=== PATIENT | female | born 1960 | race Caucasian/White ===

== ENCOUNTER → 2023-10-03 06:27 | Day surgery (SDC) | payer OTHER, SELFPAY | LOC: GI 06:27 | PROVIDERS: ATTENDING PHYSICIAN Internal Medicine Gastroenterology | DX: Z12.11 Encounter for screening for malignant neoplasm of colon (principal); K64.8 Other hemorrhoids; K57.30 Diverticulosis of large intestine without perforation or abscess without bleeding; K63.5 Polyp of colon; Z86.010 Personal history of colon polyps | CPT/HCPCS: 45380; 88305 ==

== ENCOUNTER 2023-11-04 07:27 | Emergency (ER) | payer OTHER, SELFPAY ==
[2023-11-04] VITALS (7 sets, daily range): BP systolic 148–187; BP diastolic 76–104; BMI 23.9
--- NOTE | 2023-11-04 07:58 | ED.GENMED ---
History of Present Illness
<Blanca Interiano DO, Resident - Last Filed: 11/04/23 08:20>
General
Chief Complaint: Heart Rate Problem
Source: patient
Exam Limitations: none
Time Seen by Provider: 11/04/23 07:35
Nursing documentation reviewed up to this point in time: agreed with
History of Present Illness
History of Present Illness:
Ms. Idania Arriola is a 63 yo F pmh HTN, HLD, migraines presenting with 'skipped beats.' Yesterday, pt noticed her heart skipping beats while taking her pulse. She felt overall fine yesterday and was going to see PCP this am. However, her BP was
elevated at home 162/80s, which prompted her to go to the ED. Denies DOMÍNGUEZ, lightheadedness, SOB, wheezing, CP, palpitations, lower extremity edema, n/v/d. Reports feeling dehydrated. She has felt palpitations in the past, but none today.
Hx heart murmur during . No hx arrhythmias.
Family hx aortic dissection in father.
Reports L leg tingling for the past couple days. Present off and on for 30 years. Aggravated by stress. Has had extensive testing for this, but no dx.
Past History
<Blanca Interiano DO, Resident - Last Filed: 11/04/23 08:20>
Past History
ED Past Medical History: HTN and Hypercholesterolemia
ED Past Surgical History: and Gynecological (Hysterectomy)
Patient has exhibited threatening behavior?: No
Social History
Tobacco: Non-smoker
Alcohol: Occasional
Personal:
Living: with family
Family History
Family History: Other (Her father had an abdominal aortic aneurysm)
Review of Systems
<Blanca Interiano DO, Resident - Last Filed: 11/04/23 08:20>
Review of Systems
All Other Systems: ROS reviewed and negative except as documented in HPI and ROS
Phy Exam
<Blanca Interiano DO, Resident - Last Filed: 11/04/23 08:20>
Physical Exam
Physical Exam:
.
General Physical Exam
General Presentation: well appearing
General age: appears stated age
General Skin: warm
General Habitus: normal
General Mental: alert
General Hydration: dry mucous membranes
Cardiovascular Exam
Cardiovascular Exam: no edema, no gallop, no JVD, no murmur, normal peripheral pulses, no carotid bruit and occasionally irregular
Heart Sounds: normal
Pulmonary Exam
Pulmonary Exam: lungs clear, no respiratory distress, no rales, no rhonchi, no wheezing and no cough
Gastrointestinal Exam
Gastrointestinal Exam: normal bowel sounds, non tender, soft and non distended
Course
<Blanca Interiano DO, Resident - Last Filed: 11/04/23 08:20>
Orders/Labs/Results
Orders:
Orders
11/04/23 07:56
Complete Blood Count/No Diff Urgent
Metoprolol [Lopressor] 25 mg PO NOW STA
11/04/23 07:57
Electrocardiogram (*1) Urgent
Reason for Study: Abnormal EKG
EKG- Treatment ONCE
Comprehensive Metabolic Panel Urgent
TSH Urgent
Vital Signs
Initial and Last Documented VS:
Initial Vital Signs
Temp Pulse Resp BP Pulse Ox
98.2 F 85 18 182/104 99
11/04/23 07:28 11/04/23 07:28 11/04/23 07:28 11/04/23 07:28 11/04/23 07:28
Last Documented Vital Signs
Temp Pulse Resp BP Pulse Ox
98.2 F 85 18 182/104 99
11/04/23 07:28 11/04/23 07:28 11/04/23 07:28 11/04/23 07:28 11/04/23 07:28
<Jose L Rashid DO - Last Filed: 11/04/23 08:19>
Orders/Labs/Results
Orders:
Orders
11/04/23 07:56
Complete Blood Count/No Diff Urgent
Metoprolol [Lopressor] 25 mg PO NOW STA
11/04/23 07:57
Electrocardiogram (*1) Urgent
Reason for Study: Abnormal EKG
EKG- Treatment ONCE
Comprehensive Metabolic Panel Urgent
TSH Urgent
Vital Signs
Initial and Last Documented VS:
Initial Vital Signs
Temp Pulse Resp BP Pulse Ox
98.2 F 85 18 182/104 99
11/04/23 07:28 11/04/23 07:28 11/04/23 07:28 11/04/23 07:28 11/04/23 07:28
Last Documented Vital Signs
Temp Pulse Resp BP Pulse Ox
98.2 F 85 18 182/104 99
11/04/23 07:28 11/04/23 07:28 11/04/23 07:28 11/04/23 07:28 11/04/23 07:28
<Blanca Interiano DO, Resident - Last Filed: 11/04/23 08:20>
MDM/Problems Addressed
Differential Diagnosis Includes:
cardiac arrhythmia, electrolyte imbalance, hyperthydroidism
Chronic conditions affecting care: HTN and Previous abdomnial surgery (, partial hysterectomy, cholecystectomy)
Acute Exacerbation and/or Progression of Chronic Illness: HTN
<Blanca Interiano DO, Resident - Last Filed: 11/04/23 08:20>
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
Rate: normal
Interpretation: abnormal
Heart Rate: 85
Rhythm: PVC's (possible runs of 1-2 ) and other (possible 1-2 seconds of vtach. Difficult to discern if artifact. ECG ordered to better differentiate)
*Critical Care Note
Total Time (30-74mins, 75-104mins- exclusive of procedures): Not Applicable
ED Attending Note
<Blanca Interiano DO, Resident - Last Filed: 11/04/23 08:20>
-
Portions of this chart may have been created with voice recognition software.� Occasional wrong word or��sound alike� substitutions may have occurred due to the inherent limitations of voice recognition software.
<Jose L Rashid DO - Last Filed: 11/04/23 08:19>
ED Attending Note
Patient seen and examined by attending physician: Yes
I performed a history and physical exam of patient and discussed management with resident, I reviewed resident's note and agree with documented findings and plan of care.: Yes
ED Attending Note:
Seen with resident examined independently 63-year-old female hypertension on lisinopril chronic left-sided numbness due to anxiety presents with palpitations she drinks a martini a day, no nausea vomiting no chest pain, no syncope, EKG and cardiac
monitor looking normal sinus rhythm with frequent PVCs, plan will be electrolytes, cardiac monitoring, blood pressure is up we will give her some beta-stephenie,
Discharge Plan
Departure
Prescriptions:
No Action
omeprazole 20 MG capsule,delayed release(DR/EC)
40 mg PO DAILY
lisinopril 10 MG tablet
10 mg PO DAILY
multivitamin 1 EACH tablet
1 ea PO DAILY
vitamin B complex 1 TAB tablet
1 tab PO DAILY
polyethylene glycol 3350 17 GRAMS powder in packet
17 grams PO DAILYPRN PRN (Reason: constipation) Qty: 1 0RF
acetaminophen [Tylenol Extra Strength] 500 MG tablet
1,000 mg PO Q6HPRN PRN (Reason: mild pain) Qty: 1 0RF
ibuprofen 200 MG tablet
400 - 600 mg PO Q6HPRN PRN (Reason: moderate pain) Qty: 1 0RF
oxycodone 5 MG tablet
5 mg PO Q4HPRN PRN (Reason: breakthrough/severe pain) Qty: 7 0RF
Referrals:
Idania Stratton MD [Family Provider] -
Discharge Date and Time
Print Language: KAZAKH
[2023-11-04] MEDS: LOPRESSOR 25 MG PO (08:22)
[2023-11-04 09:03] LABS: Hematocrit 39.1 % (37.0-47.0); Hemoglobin 12.8 g/dL (12.0-16.0); Mean Corp Hgb Conc. 32.7 g/dL (33.0-37.0); Mean Corpuscular Hgb 28.1 pg (27.0-31.0); Mean Corpuscular Volume 85.7 fL (81.0-99.0); Mean Platelet Volume 9.6 fL (7.4-10.4); Platelet Count 258 10^3/uL (130-400); Red Blood Cell Count 4.56 10^6/uL (4.20-5.40); Red Cell Dist. Width 13.4 % (11.5-14.5); White Blood Cell Count 5.5 10^3/uL (4.8-10.8)
[2023-11-04 09:05] LABS: ALT (SGPT) 17 U/L (0-35); AST (SGOT) 26 U/L (14-36); Albumin 4.3 g/dl (3.5-5.0); Alkaline Phosphatase 84 U/L (38-126); Blood Urea Nitrogen 13 mg/dl (7-17); Calcium 9.9 mg/dl (8.4-10.2); Carbon Dioxide 29 mmol/L (22-30); Chloride 105 mmol/L (98-107); Estimated Creatinine Clearance 89 ml/min; Glucose 98 mg/dl (70-99); Potassium 4.2 mmol/L (3.5-5.1); Sodium 143 mmol/L (135-145); Total Bilirubin 0.7 mg/dl (0.2-1.3); Total Protein 6.9 g/dl (6.3-8.2); eGFR > 60.00
[2023-11-04 09:34] LABS: TSH 0.67 uIU/ml (0.47-4.68)
== END 2023-11-04 10:22 | disposition home or self-care (01) ==
LOC: EMR 07:27
PROVIDERS: EMERGENCY PHYSICIAN Emergency Medicine; FAMILY PHYSICIAN Family Medicine
DX: R00.2 Palpitations (principal); I10 Essential (primary) hypertension; E78.00 Pure hypercholesterolemia, unspecified
CPT/HCPCS: 99284; 80053; 84443; 85027; 93005

== ENCOUNTER → 2023-11-18 09:14 | Outpatient (REF) | payer OTHER, SELFPAY | LOC: RCS 09:14 | PROVIDERS: ATTENDING PHYSICIAN Internal Medicine Cardiovascular Disease; FAMILY PHYSICIAN Family Medicine | DX: I49.3 Ventricular premature depolarization (principal); I49.9 Cardiac arrhythmia, unspecified; I10 Essential (primary) hypertension | CPT/HCPCS: 93306 ==

== ENCOUNTER → 2023-12-01 09:21 | Outpatient (REF) | payer OTHER, SELFPAY | LOC: RCS 09:21 | PROVIDERS: ATTENDING PHYSICIAN Internal Medicine Cardiovascular Disease; FAMILY PHYSICIAN Family Medicine | DX: I49.9 Cardiac arrhythmia, unspecified (principal); I49.3 Ventricular premature depolarization; I10 Essential (primary) hypertension | CPT/HCPCS: 93225; 93226 ==

== ENCOUNTER → 2023-12-08 08:16 | Outpatient (REF) | payer OTHER, SELFPAY | LOC: RCS 08:16 | PROVIDERS: ATTENDING PHYSICIAN Internal Medicine Cardiovascular Disease; FAMILY PHYSICIAN Family Medicine | DX: I49.9 Cardiac arrhythmia, unspecified (principal); I49.3 Ventricular premature depolarization; I10 Essential (primary) hypertension | CPT/HCPCS: 93017; 93350 ==

== ENCOUNTER → 2024-01-09 10:08 | Outpatient (REF) | payer OTHER, SELFPAY | LOC: RAD 10:08 | PROVIDERS: ATTENDING PHYSICIAN Internal Medicine Cardiovascular Disease; FAMILY PHYSICIAN Family Medicine | DX: R94.39 Abnormal result of other cardiovascular function study (principal) | CPT/HCPCS: 75574; Q9967 ==

== ENCOUNTER → 2024-03-10 13:51 | Outpatient (REF) | payer MEDICARE, SELFPAY | LOC: HWRAD 13:51 | PROVIDERS: ATTENDING PHYSICIAN Family Medicine | DX: Z13.820 Encounter for screening for osteoporosis (principal); Z78.0 Asymptomatic menopausal state | CPT/HCPCS: 77080 ==

== ENCOUNTER → 2024-05-18 11:52 | Outpatient (REF) | payer MEDICARE, SELFPAY | LOC: HWWDC 11:52 | PROVIDERS: ATTENDING PHYSICIAN Family Medicine | DX: Z12.31 Encounter for screening mammogram for malignant neoplasm of breast (principal) | CPT/HCPCS: 77063; 77067 ==